=== PATIENT | male | born 1985 | race Caucasian/White ===

== ENCOUNTER 2016-11-21 19:22 | Emergency (ER) | payer OTHER ==
[2016-11-21 22:21] VITALS: BP 137/97
== END 2016-11-21 22:23 | disposition left against medical advice (07) ==
LOC: ED 19:22
DX: R42 Dizziness and giddiness (principal); Z53.21 Procedure and treatment not carried out due to patient leaving prior to being seen by health care provider

== ENCOUNTER 2017-01-28 14:37 | Emergency (ER) | payer OTHER ==
[2017-01-28] MEDS ORDERED: Ondansetron INJ* 2 MG/ML VIAL IV ONE (18:09)
[2017-01-28] MEDS ORDERED: Morphine INJ* 4 MG/ML 1 ML SYRINGE IV ONE (18:09)
[2017-01-28] MEDS ORDERED: NS 0.9% 1000 ML* 1,000 ML IV ONE (18:10)
[2017-01-28 18:32] LABS: Urine Bilirubin Negative (Negative); Urine Glucose Negative (Negative); Urine Nitrite Negative (Negative)
--- NOTE | 2017-01-28 18:44 | RAD ---
INDICATION: Back pain COMPARISON: None TECHNIQUE: Routine 2 view imaging was performed FINDINGS: Bones: There are no acute bony findings. There are no significant osteoarthritic findings. Alignment: Normal Disc spaces: The disc spaces are well-maintained Soft tissues: There are no soft tissue abnormalities. IMPRESSION: NEGATIVE EXAMINATION.
--- NOTE | 2017-01-28 18:44 | RAD ---
INDICATION: Back pain. History of urolithiasis. COMPARISON: CT January 13, 2014 TECHNIQUE: AP and lateral views were obtained . FINDINGS: Bones: There are no acute bony findings. There are no significant osteoarthritic findings. Alignment: There is mild convexity of the lumbar spine to the left Disc spaces: The disc spaces are well-maintained Soft tissues: There is a 3 mm upper pole right renal calculus. IMPRESSION: NO ACUTE BONY FINDINGS. 3 MM UPPER POLE RIGHT RENAL CALCULUS
--- NOTE | 2017-01-28 19:09 | RAD ---
INDICATION: Right upper quadrant pain COMPARISON: Complete abdominal sonogram March 24, 2009 TECHNIQUE: Longitudinal and transverse scans of the right upper quadrant were obtained. Doppler interrogation of the hepatic and portal venous system was performed. FINDINGS: Liver: The liver is mildly enlarged. There are 22 hyperechoic, cystic and solid hepatic masses measuring up to 4 cm. These are not noted on the earlier CT. The liver measures 18.6 cm in cephalocaudal dimension. Vessels: There is normal hepatic and portal venous flow. Bile ducts: There is no evidence of intrahepatic or extrahepatic ductal dilatation. The common duct measures 0.4 cm. Gallbladder: The gallbladder is partially contracted. No calcified gallstones are seen. There is no pericolic cystic fluid. Pancreas: The visualized pancreas appears normal Right kidney: The right kidney is normal in size and echogenicity. There are no masses or calculi. There is no evidence of hydronephrosis. The right kidney measures 11.5 x 5.7 x 4.8 cm. IVC and aorta: The aorta and superior vena cava appear normal. Fluid: There is no ascites. Other: None. IMPRESSION: MULTIPLE LIVER MASSES. FOLLOW UP IMAGING WILL BE REQUIRED. MILD LIVER ENLARGEMENT.
[2017-01-28 19:12] LABS: Hematocrit 43 % (42-52); Hemoglobin 14.2 g/dl (14.0-18.0); Mean Corpuscular HGB Conc 33 g/dl (31-36); Mean Corpuscular Hemoglobin 31 pg (27-31); Mean Corpuscular Volume 94 fL (80-94); Mean Platelet Volume 9 um3 (7.4-10.4); Red Cell Distribution Width 16 % (10.5-15); White Blood Count 14.7 10^3/ul (3.5-10.8)
[2017-01-28 19:16] LABS: Calcium 9.5 mg/dL (8.6-10.3); EGFR African American 274.6 (>60); EGFR Non-African American 213.5 (>60); Globulin 2.8 g/dL (2-4); Potassium 4.1 mmol/L (3.5-5.0); Total Bilirubin 0.5 mg/dL (0.2-1.0); Total Protein 6.8 g/dL (6.4-8.9)
[2017-01-28] MEDS ORDERED: oxyCODONE TAB* 5 MG TAB PO ONE (20:19)
[2017-01-28 21:11] VITALS: BP 113/76
--- NOTE | 2017-02-04 23:23 | ED ---
Romero Yoon Auryana, scribed for Bharath Rapp MD on 01/28/17 at 1844 . Back Pain - HPI Summary HPI Summary: 31 year old male presents with back pain starting yesterday upon waking. Patient reports that the pain is R>L and radiates to the ribs, chest, and abdominal area. He denies fever, chills, diaphoresis, vomiting, diarrhea, blood in stool, melena, dysuria, burning with urination, hematuria, tinging in legs, or any urinary or fecal incontinence. The pain is aggravated by change in position or any sudden movements like driving. The pain is mildly improved by laying down. Patient reports venison steak and mashed potatoes with cheese and garlic. 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 No history of cholecystectomy. Patient is on chronic pain management. - History of Current Complaint Chief Complaint: EDBackInjuryPain Stated Complaint: KIDNEY/BODY PAIN Time Seen by Provider: 01/28/17 16:26 Hx Obtained From: Patient Onset/Duration: Gradual Onset, Lasting Days - yesterday morning, Still Present Onset/Duration: Started Days Ago, Still Present Timing: Constant Back Pain Location: Is Diffuse Severity Initially: Moderate Severity Currently: Severe Pain Intensity: 9 Pain Scale Used: 0-10 Numeric Aggravating Symptom(s): Movement Alleviating Symptom(s): Rest - while laying down Associated Signs And Symptoms: Positive: Abdominal Pain - Allergies/Home Medications Allergies/Adverse Reactions: Allergies Allergy/AdvReac Type Severity Reaction Status Date / Time Amphotericin B Allergy Rash Verified 01/28/17 16:23 [From AmBisome] Hydroxychloroquine Allergy Unknown Verified 01/28/17 16:23 Reaction Details Imipenem Allergy Rash Verified 01/28/17 16:23 Prochlorperazine Allergy Unknown Verified 01/28/17 16:23 [From Compazine] Reaction Details Tobramycin Allergy Nausea Verified 01/28/17 16:23 Vancomycin Allergy See Comment Verified 01/28/17 16:23 PMH/Surg Hx/FS Hx/Imm Hx Endocrine/Hematology History: Denies: Hx Anticoagulant Therapy, Hx Diabetes, Hx Thyroid Disease Cardiovascular History: Denies: Hx Hypertension, Hx Pacemaker/ICD Respiratory History: Denies: Hx Asthma, Hx Chronic Obstructive Pulmonary Disease (COPD) GI History: Denies: Hx Ulcer History: Denies: Hx Renal Disease Neurological History: Denies: Hx Dementia, Hx Seizures Psychiatric History: Denies: Hx Substance Abuse - Cancer History Cancer Type, 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 BILAT HIP REPLACEMENT. BILAT SHOULDER REPLACED Infectious Disease History: No Infectious Disease History: Denies: Hx Clostridium Difficile, Hx Hepatitis, Hx Human Immunodeficiency Virus (HIV), Hx of Known/Suspected MRSA, Hx Shingles, Hx Tuberculosis, Traveled Outside the [place] in Last 30 Days - Family History Known Family History: Positive: Cardiac Disease, Hypertension - Social History Alcohol Use: Occasionally Hx Substance Use: No Substance Use Type: Reports: None Hx Tobacco Use: Yes Smoking Status (MU): Former Smoker Review of Systems Constitutional: Negative Negative: Fever, Chills Eyes: Negative Negative: Erythema ENT: Negative Negative: Sore Throat Cardiovascular: Negative Negative: Chest Pain Respiratory: Negative Negative: Shortness Of Breath, Cough Gastrointestinal: Negative Negative: Abdominal Pain, Vomiting, Nausea Genitourinary: Negative Negative: dysuria, hematuria, incontinence Positive: Other - back pain . Negative: Myalgia, Edema Skin: Negative Negative: Rash Neurological: Negative Psychological: Normal All Other Systems Reviewed And Are Negative: Yes Physical Exam - Summary Physical Exam Summary: Constitutional: Well-developed, Well-nourished, Alert. (-) Distressed Skin: Warm, Dry HENT: Normocephalic; Atraumatic Eyes: Conjunctiva normal Neck: Musculoskeletal ROM normal neck. (-) JVD, (-) Stridor, (-) Tracheal deviation Cardio: Rhythm regular, rate normal, Heart sounds normal; Intact distal pulses; The pedal pulses are 2+ and symmetric. Radial pulses are 2+ and symmetric. (-) Murmur Pulmonary/Chest wall: Effort normal. (-) Respiratory distress, (-) Wheezes, (-) Rales Abd: Soft, epigastric and RUQ tenderness, (-) Distension, (-) Guarding, (-) Rebound Musculoskeletal: (-) Edema Lymph: (-) Cervical adenopathy Neuro: Alert, Oriented x3 Psych: Mood and affect Normal Triage Information Reviewed: Yes Vital Signs On Initial Exam: Initial Vitals Temp Pulse Resp BP Pulse Ox 97.8 F 108 17 119/85 97 01/28/17 14:43 01/28/17 14:43 01/28/17 14:43 01/28/17 14:43 01/28/17 14:43 Vital Signs Reviewed: Yes - Cecil Coma Scale Coma Scale Total: 15 Diagnostics - Vital Signs Vital Signs Temp Pulse Resp BP Pulse Ox 01/28/17 17:00 79 21 99 01/28/17 16:27 98 14 100 01/28/17 16:11 98.9 F 110 16 95/67 100 01/28/17 14:43 97.8 F 108 17 119/85 97 - Laboratory Result Diagrams: 01/28/17 18:50 01/28/17 18:50 Lab Statement: Any lab studies that have been ordered have been reviewed, and results considered in the medical decision making process. - Radiology Thoracic spine XR Xray Interpretation: No Acute Changes Radiology Interpretation Completed By: Radiologist Lumbar Spine XR Xray Interpretation: Positive (See Comments) - IMPRESSION: NO ACUTE BONY FINDINGS. 3 MM UPPER POLE RIGHT RENAL CALCULUS Radiology Interpretation Completed By: Radiologist - Additional Comments Diagnostic Additional Comments: US GALL BLADDER IMPRESSION: MULTIPLE LIVER MASSES. FOLLOW UP IMAGING WILL BE REQUIRED. MILD LIVER ENLARGEMENT. Re-Evaluation - Re-Evaluation First Eval Re-Evaluation Time: 19:58 - DISCUSSED LAB RESULTS AND IMAGING Comment: PATIENT IS UNSURE IF HE IS WILLING TO STAY Back Pain Course/Dx - Course Course Of Treatment: 31 year old male presents with back pain starting yesterday upon waking. Patient reports that the pain is R>L and radiates to the ribs, chest, and abdominal area. He denies fever, chills, diaphoresis, vomiting , diarrhea, blood in stool, melena, dysuria, burning with urination, hematuria, tinging in legs, or any urinary or fecal incontinence. The pain is aggravated by change in position or any sudden movements like driving. The pain is mildly improved by laying down. Patient reports venison steak and mashed potatoes with cheese and garlic. 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 No history of cholecystectomy. Patient is on chronic pain management. UA negative. Lactic acid 2.9. Thoracic spine XR- NAD. Lumbar spine XR - IMPRESSION: NO ACUTE BONY FINDINGS. 3 MM UPPER POLE RIGHT RENAL CALCULUS. GALLBLADDER US-IMPRESSION: MULTIPLE LIVER MASSES. FOLLOW UP IMAGING WILL BE REQUIRED. MILD LIVER. ENLARGEMENT. DDx: pancreatitis, metastatic disease secondary to leukemia, cholecystitis, gallstones, and gastritis. Patient stated that he does not believe that being admitted will accomplish much since the [facility] will repeat the imaging and blood work. Diagnosis: liver metastasis. F/U [facility]. Patients that he ran out of his pain medications early - reports that pain DRYumiko is aware that he occasionally runs out of medications early. - Diagnoses Differential Diagnosis/HQI/PQRI: Positive: Other - DDx: pancreatitis, metastatic disease secondary to leukemia, cholecystitis, gallstones, and gastritis Provider Diagnoses: Liver metastases Discharge - Discharge Plan Condition: Stable Disposition: HOME Prescriptions: Morphine Sulfate 30 mg PO BID #10 tab MDD 2 Referrals: Antione Rausch MD [Primary Care Provider] - 2 Days Additional Instructions: Dx: Liver metastasis and leukemia. MAY INCREASE YOUR DOSE OF MORPHINE SULFATE TO 30 MG 3 TIMES A DAY NEEDED FOR PAIN. RETURN TO THE EMERGENCY DEPARTMENT FOR CHANGING OR WORSENING SYMPTOMS. The documentation as recorded by the Romero nieto Auryana accurately reflects the service I personally performed and the decisions made by , Bharath Rapp MD.
== END 2017-01-28 21:12 | disposition home or self-care (01) ==
LOC: ED 14:37
DX: C78.7 Secondary malignant neoplasm of liver and intrahepatic bile duct (principal); Z85.6 Personal history of leukemia; N20.0 Calculus of kidney; Z87.442 Personal history of urinary calculi; Z94.81 Bone marrow transplant status; Z96.643 Presence of artificial hip joint, bilateral; Z96.612 Presence of left artificial shoulder joint; Z96.611 Presence of right artificial shoulder joint; Z87.891 Personal history of nicotine dependence
CPT/HCPCS: 36415; 72070; 72100; 76705; 80053; 81003; 83605; 83690; 85025; 96361; 96374; 96375; 99284; A9270-GY; J2270; J2405

== ENCOUNTER 2017-02-11 23:58 | Emergency (ER) | payer OTHER ==
[2017-02-12] MEDS ORDERED: NS 0.9% 1000 ML* 1,000 ML IV ONE (01:24)
[2017-02-12 02:02] LABS: Hematocrit 41 % (42-52); Hemoglobin 13.6 g/dl (14.0-18.0); Mean Corpuscular HGB Conc 33 g/dl (31-36); Mean Corpuscular Hemoglobin 31 pg (27-31); Mean Corpuscular Volume 93 fL (80-94); Mean Platelet Volume 9 um3 (7.4-10.4); Red Blood Count 4.44 10^6/ul (4.0-5.4); Red Cell Distribution Width 16 % (10.5-15); White Blood Count 14.5 10^3/ul (3.5-10.8)
[2017-02-12 02:03] LABS: Add Diff/Slide Review? Slide Review Added; Comments Flag Yes
--- NOTE | 2017-02-12 02:10 | ED ---
Ene Yoon Rebecca, scribed for Vasiliy Edwards MD on 02/12/17 at 0120 . Abdominal Pain/Male - HPI Summary HPI Summary: Pt is a 31 y/o M who presents to ED c/o R flank pain. Current bout of pain began last night at 1900 and has been constant since onset. Pain is currently severe, ranked 10/10. Sx aggravated and alleviated by nothing, unchanged by morphine taken yesterday morning at 0300. Pt was seen on 01/28/2017 by [facility] for similar sx during which an US was done that revealed 22 masses on the liver, per pt. PMHx Leukemia. Has an appointment this Sunday (2 days from now) to follow up with Julito. - History of Current Complaint Chief Complaint: EDFlankPain Stated Complaint: RT SIDE PAIN Time Seen by Provider: 02/12/17 01:16 Hx Obtained From: Patient Onset/Duration: Lasting Hours - Last night at 1900, Still Present Timing: Constant Severity Currently: Severe Pain Intensity: 10 Pain Scale Used: 0-10 Numeric Location: Flank - R Aggravating Factor(s): Nothing Alleviating Factor(s): Nothing Associated Signs And Symptoms: Positive: Negative - Allergies/Home Medications Allergies/Adverse Reactions: Allergies Allergy/AdvReac Type Severity Reaction Status Date / Time Iodinated Diagnostic Agents Allergy Intermediate Hives Verified 02/12/17 01:48 Amphotericin B Allergy Rash Verified 01/28/17 16:23 [From AmBisome] Hydroxychloroquine Allergy Unknown Verified 01/28/17 16:23 Reaction Details Imipenem Allergy Rash Verified 01/28/17 16:23 Prochlorperazine Allergy Unknown Verified 01/28/17 16:23 [From Compazine] Reaction Details Tobramycin Allergy Nausea Verified 01/28/17 16:23 Vancomycin Allergy See Comment Verified 01/28/17 16:23 PMH/Surg Hx/FS Hx/Imm Hx Endocrine/Hematology History: Denies: Hx Anticoagulant Therapy, Hx Diabetes, Hx Thyroid Disease Cardiovascular History: Denies: Hx Hypertension, Hx Pacemaker/ICD Respiratory History: Denies: Hx Asthma, Hx Chronic Obstructive Pulmonary Disease (COPD) GI History: Denies: Hx Ulcer History: Denies: Hx Renal Disease Neurological History: Denies: Hx Dementia, Hx Seizures Psychiatric History: Denies: Hx Substance Abuse - Cancer History Cancer Type, Location and Year: AML-2006. 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 BILAT HIP REPLACEMENT. BILAT SHOULDER REPLACED Infectious Disease History: No Infectious Disease History: Denies: Hx Clostridium Difficile, Hx Hepatitis, Hx Human Immunodeficiency Virus (HIV), Hx of Known/Suspected MRSA, Hx Shingles, Hx Tuberculosis, Traveled Outside the [place] in Last 30 Days - Family History Known Family History: Positive: Cardiac Disease, Hypertension - Social History Alcohol Use: Occasionally Hx Substance Use: No Substance Use Type: Reports: None Hx Tobacco Use: Yes Smoking Status (MU): Former Smoker Review of Systems Negative: Fever Positive: Abdominal Pain - R flank pain All Other Systems Reviewed And Are Negative: Yes Physical Exam Triage Information Reviewed: Yes Vital Signs On Initial Exam: Initial Vitals Temp Pulse Resp BP 98.2 F 115 18 101/69 02/12/17 00:04 02/12/17 00:04 02/12/17 00:04 02/12/17 00:04 Vital Signs Reviewed: Yes Appearance: Positive: Pain Distress - milkd discomfort, Thin Skin: Positive: Warm Head/Face: Positive: Normal Head/Face Inspection Eyes: Positive: LEXIE ENT: Positive: Hearing grossly normal Neck: Positive: Supple Respiratory/Lung Sounds: Positive: Breath Sounds Present Cardiovascular: Positive: RRR Abdomen Description: Positive: Nontender, Soft Bowel Sounds: Positive: Present Musculoskeletal: Positive: Strength/ROM Intact Neurological: Positive: Normal Gait - Cecil Coma Scale Coma Scale Total: 15 Diagnostics - Vital Signs Vital Signs Temp Pulse Resp BP Pulse Ox 02/12/17 01:16 98 99 02/12/17 01:14 108/72 02/12/17 00:06 97.8 F 110 18 101/69 99 02/12/17 00:04 98.2 F 115 18 101/69 - Laboratory Lab Results: Lab Results 02/12/17 Range/Units 01:42 WBC 14.5 H (3.5-10.8) 10^3/ul RBC 4.44 (4.0-5.4) 10^6/ul Hgb 13.6 L (14.0-18.0) g/dl Hct 41 L (42-52) % MCV 93 (80-94) fL MCH 31 (27-31) pg MCHC 33 (31-36) g/dl RDW 16 H (10.5-15) % Plt Count 380 (150-450) 10^3/ul MPV 9 (7.4-10.4) um3 Neut % (Auto) 65.5 (38-83) % Lymph % (Auto) 16.3 L (25-47) % [place] % (Auto) 11.8 H (1-9) % Eos % (Auto) 5.1 (0-6) % Baso % (Auto) 1.3 (0-2) % Absolute Neuts (auto) 9.5 H (1.5-7.7) 10^3/ul Absolute Lymphs (auto) 2.4 (1.0-4.8) 10^3/ul Absolute Monos (auto) 1.7 H (0-0.8) 10^3/ul Absolute Eos (auto) 0.7 H (0-0.6) 10^3/ul Absolute Basos (auto) 0.2 (0-0.2) 10^3/ul Absolute Nucleated RBC 0.01 10^3/ul Nucleated RBC % 0.1 Result Diagrams: 02/12/17 01:42 02/12/17 01:42 Lab Statement: Any lab studies that have been ordered have been reviewed, and results considered in the medical decision making process. - CT Abd/Pel CT CT Interpretation Completed By: Radiologist - Diffuse hepatic metastases. Possible early autosplenectomy. Tiny nonobstructing right renal stone. Re-Evaluation - Re-Evaluation First Eval Re-Evaluation Time: 04:44 Change: Improved Comment: Discussed CT and lab results with the pt. Discussed D/C plan. Abdominal Pain Fem Course/Dx - Course Assessment/Plan: Pt is a 31 y/o M who presents to ED c/o severe R flank pain since last night at 1900. Sx unchanged by morphine taken yesterday morning at 0300. Pt was seen on 01/28/2017 by [facility] for similar sx during which an US was done that revealed 22 masses on the liver, per pt. PMHx Leukemia. Has an appointment this Sunday (2 days from now) to follow up with Julito. WBC of 14.5, CRP of 31.29. CT Abd/Pel reveals: "Diffuse hepatic metastases. Possible early autosplenectomy. Tiny nonobstructing right renal stone." He will be D/C to home with Dx of hepatic lesions with a follow up with his PCP. He understands and agrees. - Diagnoses Provider Diagnoses: Hepatic lesion Discharge - Discharge Plan Condition: Stable Disposition: HOME Patient Education Materials: Liver Abscess (ED) Referrals: Antione Rausch MD [Primary Care Provider] - 3 Days Additional Instructions: Continue with treatments as planned. The documentation as recorded by the Ene nieto Rebecca accurately reflects the service I personally performed and the decisions made by me, Vasiliy Edwards MD.
[2017-02-12 02:14] LABS: Albumin 4.1 g/dL (3.2-5.2); BUN/Creatinine Ratio 14.3 (8-20); C Reactive Protein 31.29 mg/L (< 5.00); Calcium 9.2 mg/dL (8.6-10.3); EGFR Non-African American 237.2 (>60); Globulin 2.5 g/dL (2-4); Magnesium 1.9 mg/dL (1.9-2.7); Potassium 3.8 mmol/L (3.5-5.0); Total Bilirubin 0.6 mg/dL (0.2-1.0); Total Protein 6.6 g/dL (6.4-8.9)
[2017-02-12 03:13] VITALS: BP 105/63
[2017-02-12 03:33] LABS: Urine Bilirubin Negative (Negative); Urine Glucose Negative (Negative); Urine Nitrite Negative (Negative)
--- NOTE | 2017-02-12 08:27 | RAD ---
INDICATION: RIGHT side flank pain. Possible hepatic masses on ultrasound. History of leukemia with bone marrow transplant. History of squamous and basal cell carcinomas. Possible IV contrast allergy. COMPARISON: January 28, 2017 RIGHT upper quadrant ultrasound. TECHNIQUE: Multidetector CT images were obtained from the lung bases to the ischial tuberosities. Oral contrast administered. Assessment of the visceral limited without IV contrast. REPORT: Unremarkable visualized inferior thorax. There are innumerable moderately well-defined hypodense hepatic lesions throughout both hepatic lobes measuring up to 4.2 cm maximum dimension. The liver measures [address] abnormality of the partially contracted gallbladder or pancreas. Diminutive spleen. Artifact from the bilateral hip prostheses limits assessment of the inferior pelvis. Enteric contrast extends to the proximal descending colon. No CT abnormality of the alimentary tract evident. Trace free fluid in the dependent pelvis. Normal adrenal glands. Nonobstructing 3.5 mm stone superior pole calyx RIGHT kidney. Negative for hydronephrosis or focal renal lesions. Unremarkable visualized ureters with the distal segments obscured due to artifact from the hip prostheses. Multiple enlarged retroperitoneal nodes including signs sales representative 1.4 cm short axis LEFT para celiac axis node and infrarenal aortocaval and LEFT periaortic nodes measuring up to 1.1 cm short axis. Normal diameter abdominal aorta and iliac arteries with mild calcific plaque. Physiologic distention of the IVC. Negative for suspicious focal osseous lesions. IMPRESSION: 1. Enlarged liver with innumerable hypodense hepatic lesions new compared with the 2014 CT. The lesions are amenable to ultrasound-guided biopsy if clinically indicated. 2. Retroperitoneal lymphadenopathy new compared with the 2014 CT. 3. Nonobstructing 3.5 mm stone superior pole calyx RIGHT kidney.
== END 2017-02-12 04:59 | disposition home or self-care (01) ==
LOC: ED 23:58
DX: K76.89 Other specified diseases of liver (principal); R10.84 Generalized abdominal pain; Z87.891 Personal history of nicotine dependence
CPT/HCPCS: 36415; 74176; 80053; 81003; 83605; 83690; 83735; 85025; 86140; 96360; 99282

== ENCOUNTER 2017-07-07 09:07 | Emergency (ER) | payer OTHER ==
[2017-07-07 09:15] VITALS: BP 116/70
--- NOTE | 2017-07-07 09:36 | ED ---
Respiratory - HPI Summary HPI Summary: 31 yr old male with cough of green sputum for about a week, and intermittent fever with TMAX 102 on Weds this week. He has been coughing a lot, feels fatigued. Denies prior lung problems or pneumonia. He last got chemo a month ago and was too sick to get his chemo this week. He is followed by [facility] in [place]. - History of Current Complaint Chief Complaint: UCRespiratory Stated Complaint: COUGH CONGESTION SORE THROAT Time Seen by Provider: 07/07/17 09:18 - Allergy/Home Medications Allergies/Adverse Reactions: Allergies Allergy/AdvReac Type Severity Reaction Status Date / Time Iodinated Diagnostic Agents Allergy Intermediate Hives Verified 07/07/17 09:15 Amphotericin B Allergy Rash Verified 07/07/17 09:15 [From AmBisome] Hydroxychloroquine Allergy Unknown Verified 07/07/17 09:15 Reaction Details Imipenem Allergy Rash Verified 07/07/17 09:15 Prochlorperazine Allergy Unknown Verified 07/07/17 09:15 [From Compazine] Reaction Details Tobramycin Allergy Nausea Verified 07/07/17 09:15 Vancomycin Allergy See Comment Verified 07/07/17 09:15 Home Medications: Home Medications Chemotherapy 07/07/17 [History] PMH/Surg Hx/FS Hx/Imm Hx Endocrine/Hematology History: Denies: Hx Anticoagulant Therapy, Hx Diabetes, Hx Thyroid Disease Cardiovascular History: Denies: Hx Hypertension, Hx Pacemaker/ICD Respiratory History: Denies: Hx Asthma, Hx Chronic Obstructive Pulmonary Disease (COPD) GI History: Denies: Hx Ulcer History: Denies: Hx Renal Disease Neurological History: Denies: Hx Dementia, Hx Seizures Psychiatric History: Denies: Hx Substance Abuse - Cancer History Cancer Type, Location and Year: 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 BILAT HIP REPLACEMENT. BILAT SHOULDER REPLACED Infectious Disease History: No Infectious Disease History: Denies: Hx Clostridium Difficile, Hx Hepatitis, Hx Human Immunodeficiency Virus (HIV), Hx of Known/Suspected MRSA, Hx Shingles, Hx Tuberculosis, Hx Known/ Suspected VRE, Hx Known/Suspected VRSA, History Other Infectious Disease, Traveled Outside the [place] in Last 30 Days - Family History Known Family History: Positive: Cardiac Disease, Hypertension - Social History Alcohol Use: None Hx Substance Use: No Substance Use Type: Reports: None Hx Tobacco Use: Yes Smoking Status (MU): Never Smoked Tobacco Review of Systems Positive: Fever, Chills, Fatigue Positive: Cough All Other Systems Reviewed And Are Negative: Yes Physical Exam Triage Information Reviewed: Yes Vital Signs On Initial Exam: Initial Vitals Temp Pulse Resp BP Pulse Ox 98.9 F 107 18 116/70 97 07/07/17 09:11 07/07/17 09:11 07/07/17 09:11 07/07/17 09:11 07/07/17 09:11 Vital Signs Reviewed: Yes Appearance: Positive: Cachectic Skin: Positive: Warm, Skin Color Reflects Adequate Perfusion Head/Face: Positive: Normal Head/Face Inspection Eyes: Positive: EOMI ENT: Positive: Pharynx normal, Nasal congestion Neck: Positive: Supple, Nontender Respiratory/Lung Sounds: Positive: Other - focal wheeze bases with some rhonci Cardiovascular: Positive: RRR. Negative: Murmur Abdomen Description: Positive: Nontender Musculoskeletal: Positive: Strength/ROM Intact Neurological: Positive: Alert, Oriented to Person Place, Time, CN Intact II-III Psychiatric: Positive: Normal Diagnostics - Vital Signs Vital Signs Temp Pulse Resp BP Pulse Ox 07/07/17 09:11 98.9 F 107 18 116/70 97 - Laboratory Lab Statement: Any lab studies that have been ordered have been reviewed, and results considered in the medical decision making process. Disposition - Course Course Of Treatment: patient with bilateral pneumonia, and chemo patient. Signed out AMA with refusal of als transport to ER. risk sepsis, disability. - Diagnoses Provider Diagnoses: Bilateral pneumonia Discharge - Discharge Plan Condition: Good Disposition: AGAINST MEDICAL ADVICE
--- NOTE | 2017-07-07 10:09 | RAD ---
INDICATION: Chest pain. Congestion for 4 days. COMPARISON: November 24, 2016 TECHNIQUE: Dual energy PA and routine lateral views of the chest were obtained. REPORT: Alveolar consolidation at the bilateral lung bases including involvement of the basilar segments of the lower lobes and lingula. Negative for volume loss to suggest atelectasis. Negative for pleural effusion or pneumothorax. Tip of RIGHT chest port at level of superior vena cava RIGHT atrial junction. The heart, pulmonary vasculature, and mediastinal contours are unremarkable. Bilateral glenohumeral joint hemiarthroplasty. IMPRESSION: Bibasilar pulmonary inflammatory infiltrates consistent with pneumonia. Radiographic follow-up after therapy suggested to assess for resolution.
== END 2017-07-07 10:17 | disposition left against medical advice (07) ==
LOC: UCCORT 09:07
DX: J18.9 Pneumonia, unspecified organism (principal); C44.90 Unspecified malignant neoplasm of skin, unspecified; Z94.81 Bone marrow transplant status; Z96.643 Presence of artificial hip joint, bilateral; Z96.612 Presence of left artificial shoulder joint; Z96.611 Presence of right artificial shoulder joint
CPT/HCPCS: 71020; 99212; G0463